=== PATIENT | male | born 1960 | race African-American/Black ===

== ENCOUNTER 2020-08-03 06:07 | Outpatient (REF) | payer MEDICARE, MEDICAID, SELFPAY ==
[2020-08-03 07:18] LABS: MANUAL DIFF FLAG NO
[2020-08-03 07:20] LABS: Basophils Percent Auto 0.7 % (0-2); Eosinophils Absolute Auto 0.2 X10*3/uL (0.0-0.4); Eosinophils Percent Auto 3.6 % (0-4); Hematocrit 43.5 % (42-52); Hemoglobin 14.8 g/dl (14.0-18.0); Imm Gran Abs Auto 0.02 X10*3/uL (0.00-0.03); Imm Gran Pct Auto 0.4 % (0.0-0.4); Lymphocytes Absolute Auto 1.6 X10*3/uL (1.2-4.9); Lymphocytes Percent Auto 28.8 % (20-40); Mean Corpuscular Hemoglobin 30.8 pg (27.0-33.0); Mean Corpuscular Volume 90.4 fL (80-98); Mean Platelet Volume 9.6 fL (9.4-12.4); Monocytes Absolute Auto 0.5 X10*3/uL (0.1-1.2); Monocytes Percent Auto 9.6 % (2-11); Neutrophils Absolute Auto 3.1 X10*3/uL (2.0-8.3); Neutrophils Percent Auto 56.9 % (45-73); Platelet Count 253 X10*3/uL (160-400); Red Blood Count 4.81 X10*6/uL (4.60-5.80); Red Cell Distribution Width 14.2 % (11.0-16.0); White Blood Count 5.5 X10*3/uL (4.8-10.8)
[2020-08-03 07:58] LABS: Alanine Aminotransferase 21 U/L (0-40); Albumin Level 4.1 g/dL (3.5-5.0); Alkaline Phosphatase 83 U/L (39-117); Anion Gap 11 (12-20); Aspartate Amino Transferase 20 U/L (5-37); Bilirubin Total 0.6 mg/dL (0.0-1.0); Blood Urea Nitrogen 15 mg/dL (9-16); Carbon Dioxide 30 mmol/L (22-29); Chloride 106 mmol/L (96-108); Cholesterol 190 mg/dL; Estimated Glomerular Filt Rate 41; Glucose Random 97 mg/dL (60-115); HDL Cholesterol 63 mg/dL; LDL Cholesterol Calculated 110 mg/dl; Magnesium 2.2 mg/dL (1.6-2.6); Phosphorus 3.7 mg/dL (2.7-4.5); Sodium 143 mmol/L (135-145); Total Protein 6.8 g/dL (6.5-8.0); Triglycerides 85 mg/dL
[2020-08-04 12:21] LABS: Calcium (PTHI) 9.1 mg/dL (8.6-10.3); PTHI 162 pg/mL (14-64)
== END 2020-08-03 06:08 | disposition home or self-care (01) ==
LOC: HO.LAB 06:07
PROVIDERS: Absent Provider Internal Medicine; PCP Internal Medicine; Visit Provider Internal Medicine
DX: I12.9 Hypertensive chronic kidney disease with stage 1 through stage 4 chronic kidney disease, or unspecified chronic kidney disease (principal); N18.30 Chronic kidney disease, stage 3 unspecified; E78.5 Hyperlipidemia, unspecified
CPT/HCPCS: 36415; 80053; 80061; 83735; 83970; 84100; 85025

== ENCOUNTER 2021-03-14 09:06 | Outpatient (REF) | payer MEDICARE, MEDICAID, SELFPAY ==
[2021-03-14 09:32] LABS: MANUAL DIFF FLAG NO
[2021-03-14 09:36] LABS: Basophils Percent Auto 0.6 % (0-2); Eosinophils Absolute Auto 0.1 X10*3/uL (0.0-0.4); Hemoglobin 15.1 g/dl (14.0-18.0); Imm Gran Abs Auto 0.01 X10*3/uL (0.00-0.03); Imm Gran Pct Auto 0.2 % (0.0-0.4); Lymphocytes Absolute Auto 1.2 X10*3/uL (1.2-4.9); Lymphocytes Percent Auto 25.1 % (20-40); Mean Corpuscular HGB Conc 34.3 g/dl (31.0-36.0); Mean Corpuscular Hemoglobin 30.7 pg (27.0-33.0); Mean Corpuscular Volume 89.4 fL (80.0-98.0); Mean Platelet Volume 8.9 fL (9.4-12.4); Monocytes Absolute Auto 0.4 X10*3/uL (0.1-1.2); Monocytes Percent Auto 8.4 % (2-11); Neutrophils Absolute Auto 3.1 x10*3/uL (2.0-8.3); Neutrophils Percent Auto 63.7 % (45-73); Platelet Count 269 X10*3/uL (160-400); Red Blood Count 4.92 X10*6/uL (4.60-5.80); Red Cell Distribution Width 14.1 % (11.0-16.0); White Blood Count 4.9 X10*3/uL (4.8-10.8)
[2021-03-14 10:02] LABS: Anion Gap 12 (12-20); Blood Urea Nitrogen 22 mg/dL (9-16); Calcium 9.7 mg/dL (8.4-10.2); Carbon Dioxide 24 mmol/L (22-29); Chloride 107 mmol/L (96-108); Estimated Glomerular Filt Rate 31; Magnesium 1.8 mg/dL (1.6-2.6); Sodium 139 mmol/L (135-145)
[2021-03-14 10:22] LABS: Vitamin D 25-OH Total 11.7 ng/mL (>30)
[2021-03-14 12:37] LABS: Microalbum/Creatinine Ratio Ur 48.2 ug/mg cr
[2021-03-16 12:10] LABS: Calcium (PTHI) 9.2 mg/dL (8.6-10.3); PTHI 179 pg/mL (14-64)
== END 2021-03-14 09:07 | disposition home or self-care (01) ==
LOC: HO.LAB 09:06
PROVIDERS: Visit Provider Internal Medicine
DX: E87.6 Hypokalemia (principal); I12.9 Hypertensive chronic kidney disease with stage 1 through stage 4 chronic kidney disease, or unspecified chronic kidney disease; N18.31 Chronic kidney disease, stage 3a
CPT/HCPCS: 36415; 80051; 82043; 82306; 82310; 82565; 83735; 83970; 84520; 85025

== ENCOUNTER 2021-09-01 13:28 | Emergency (ER) | payer MEDICARE, MEDICAID, SELFPAY ==
--- NOTE | ~2021-09-01 | CT_ITS ---
EXAMINATION: CT HEAD WITHOUT CONTRAST (STROKE PROTOCOL) CLINICAL INFORMATION: Stroke protocol. COMPARISON: CT head dated 09/28/2017 TECHNIQUE: Contiguous axial imaging was performed from the skull base to vertex without intravenous administration of contrast. This CT examination was performed using dose optimization techniques as appropriate, variously including the following: *Automated exposure control *Adjustment of mA and/or kV according to patient size (this includes techniques or standardized protocols for targeted exams where dose is matched to indication/reason for exam; i.e. extremities or head) *Use of iterative reconstruction technique DLP: 767 mGy-cm FINDINGS: Acute left thalamic hemorrhage measuring approximately 1.8 cm with surrounding vasogenic edema extending over 3.2 cm. There is resultant expansion of the left thalamus and partial effacement of the third ventricle. No herniation pattern. A previous right thalamic hemorrhage in 2018 has evolved into an area of encephalomalacia within the right thalamus. New but nonrecent left frontal subcortical infarct and moderate background chronic white matter small vessel ischemic changes. Old right medial cerebellar lacunar infarct. Cavernous carotid calcifications. No extra-axial collection. Mucous retention cysts within the right maxillary sinus. Paranasal sinuses and mastoid air cells are otherwise clear. CT/CT head for stroke IMPRESSION: * Acute left thalamic hemorrhage as described. * Old right thalamic hemorrhagic infarct, left frontal subcortical infarct, medial right cerebellar lacunar infarct and moderate background small vessel ischemic changes. This critical result was discussed with Dr Baltazar at 09/01/2021 1:45 PM and it was ascertained that the content and urgency of the report was understood at the time of direct communication.
--- NOTE | 2021-09-01 13:31 | ECG_ITS ---
Test Reason : stroke Blood Pressure : / mmHG Vent. Rate : 086 BPM Atrial Rate : 086 BPM P-R Int : 164 ms QRS Dur : 102 ms QT Int : 412 ms P-R-T Axes : 061 000 080 degrees QTc Int : 493 ms Normal sinus rhythm Moderate voltage criteria for LVH, may be normal variant ( Sokolow-Bowser , Esteban product ) Nonspecific T wave abnormality Prolonged QT Abnormal ECG When compared with ECG of 13-OCT-2018 18:28, Inverted T waves have replaced nonspecific T wave abnormality in Lateral leads QT has lengthened Referred By: Beatriz Navas Electronically Signed By:Corey Moy
--- NOTE | 2021-09-01 13:32 | ED_ITS ---
HPI - Neuro Symptoms/Deficit General Chief Complaint: Stroke Stated Complaint: UNK LKWT,GARB SPEECH,R WEAK,-THINNERS PER EMS Time Seen by Provider: 09/01/21 13:31 Source: patient and EMS Mode of arrival: EMS History of Present Illness HPI Narrative: 61-year-old male with known hypertension, non med compliant is brought in by EMS with garbled speech unknown last known well they Score patient at [facility] which is consistent with my evaluation. EMS also states that patient has full medications that are delivered to his home that have not been opened. Patient denies any dizziness, visual loss, headache. Related Data Allergies Allergy/AdvReac Type Severity Reaction Status Date / Time No Known Allergies Allergy Unverified 12/03/19 19:31 [No Known Allergies*] Review of Systems Review of Systems: Pertinent positives and negatives as stated in HPI 10 point review of systems otherwise negative. PMFSH Past Medical History Source: nursing notes reviewed Social History Social History Advance Directives: Yes Advance Directives Information Provided: Yes Advance Directives on File: No Physical Exam Vital Signs: Vital Signs: Last Vital Signs Temp 99.2 F 09/01/21 14:28 Pulse 70 09/01/21 14:51 Resp 16 09/01/21 14:51 BP 163/118 H 09/01/21 14:51 Pulse Ox 98 09/01/21 14:28 O2 Del Method 09/01/21 14:28 BMI result Body Mass Index 0.4 VITAL SIGNS: Reviewed. GENERAL: Well developed, well nourished, in no acute distress. HEAD: Normocephalic/atraumatic EYES: PERRLA, EOMI,, no nystagmus EARS: Ext canals without abnormality OROPHARYNX: no oral lesions noted, posterior pharynx clear and non-erythematous without noted tonsillar enlargement/erythema/exudates NECK: Supple, no adenopathy LUNGS: Normal breath sounds. CARDIOVASCULAR: Regular rate and rhythm without noted murmurs ABDOMEN: Soft, non-tender, non-distended with bowel sounds. MUSCULOSKELETAL: No tenderness, deformities, or effusions noted on gross inspection. EXTREMITIES: No cyanosis, clubbing or edema. SKIN: Inspection of the skin reveals no rashes NEUROLOGIC: Alert and oriented x 4. Strength and sensation to light touch were grossly intact x 4, facial asymmetry is present, mild aphasia, otherwise cranial nerves 2-12 are grossly intact. Course Course Course Narrative: 61-year-old Male With severe hypertension and suspect stroke. 1338: Called by radiology and patient has left thalamic bleed. 1349: Spoke with [facility] [place]. Patient to receive labetalol. 1405: Discussed with Dr Cao who recommends BP control to SBP-[address] patient on nicardipine drip. Patient is arranged for stepdown under the care of the hospitalist. 1429: Patient noted to have an elevated troponin, however he is not having chest pain, and his blood pressure has been well over 200 systolic and is currently improving. Will provide [facility] hospitalist with this information, however this is likely secondary to uncontrolled blood pressure. 1443: Discussed the case with the hospitalist who accepts transfer under Dr Chow. Awaiting a bed. MDM - Neuro Symptoms/Deficit Lab Data Result diagrams: 09/01/21 13:53 09/01/21 13:53 Labs: Lab Results 09/01/21 09/01/21 09/01/21 Range/Units 13:47 13:48 13:53 WBC 5.4 (4.8-10.8) X10*3/uL RBC 5.07 (4.60-5.80) X10*6/uL Hgb 15.6 (14.0-18.0) g/dl Hct 44.6 (42.0-52.0) % MCV 88.0 (80.0-98.0) fL MCH 30.8 (27.0-33.0) pg MCHC 35.0 (31.0-36.0) g/dl RDW 14.1 (11.0-16.0) % Plt Count 267 (160-400) X10*3/uL MPV 9.4 (9.4-12.4) fL Immature Gran % (Auto) 0.2 (0.0-0.4) % Neut % (Auto) 65.0 (45-73) % Lymph % (Auto) 25.0 (20-40) % [place] % (Auto) 8.1 (2-11) % Eos % (Auto) 1.1 (0-4) % Baso % (Auto) 0.6 (0-2) % Lymph # (Auto) 1.4 (1.2-4.9) X10*3/uL [place] # (Auto) 0.4 (0.1-1.2) X10*3/uL Eos # (Auto) 0.1 (0.0-0.4) X10*3/uL Baso # (Auto) 0.0 (0.0-0.2) X10*3/uL Abs Immat Gran (auto) 0.01 (0.00-0.03) X10*3/uL Absolute Neuts (auto) 3.5 (2.0-8.3) x10*3/uL Absolute Nucleated RBC 0.000 (0.0-0.012) X10*3/uL Nucleated RBC % (auto) 0.0 (0.0-0.2) /100WBC PT (9.9-13.0) SEC Whole Blood PT 13.0 (11.1-13.5) sec INR (0.9-1.1) Whole Blood INR 1.1 (0.9-1.1) APTT (24.1-38.0) SEC Sodium (135-145) mmol/L Potassium (3.3-5.1) mmol/L Chloride (96-108) mmol/L Carbon Dioxide (22-29) mmol/L Anion Gap (12-20) BUN (9-16) mg/dL Creatinine (0.5-1.4) mg/dL Estim Creat Clear Calc Estimated GFR POC Glucose 96 (60-115) mg/dL Random Glucose (60-115) mg/dL Calcium (8.4-10.2) mg/dL Total Creatine Kinase (38-174) U/L Troponin I High Sens (<3.5-35.0) ng/L COVID-19 (NANCI) (Negative) COVID-19 Clin Com 09/01/21 09/01/21 09/01/21 Range/Units 13:53 13:53 13:53 WBC (4.8-10.8) X10*3/uL RBC (4.60-5.80) X10*6/uL Hgb (14.0-18.0) g/dl Hct (42.0-52.0) % MCV (80.0-98.0) fL MCH (27.0-33.0) pg MCHC (31.0-36.0) g/dl RDW (11.0-16.0) % Plt Count (160-400) X10*3/uL MPV (9.4-12.4) fL Immature Gran % (Auto) (0.0-0.4) % Neut % (Auto) (45-73) % Lymph % (Auto) (20-40) % [place] % (Auto) (2-11) % Eos % (Auto) (0-4) % Baso % (Auto) (0-2) % Lymph # (Auto) (1.2-4.9) X10*3/uL [place] # (Auto) (0.1-1.2) X10*3/uL Eos # (Auto) (0.0-0.4) X10*3/uL Baso # (Auto) (0.0-0.2) X10*3/uL Abs Immat Gran (auto) (0.00-0.03) X10*3/uL Absolute Neuts (auto) (2.0-8.3) x10*3/uL Absolute Nucleated RBC (0.0-0.012) X10*3/uL Nucleated RBC % (auto) (0.0-0.2) /100WBC PT 12.5 (9.9-13.0) SEC Whole Blood PT (11.1-13.5) sec INR 1.1 (0.9-1.1) Whole Blood INR (0.9-1.1) APTT 34.0 (24.1-38.0) SEC Sodium 141 (135-145) mmol/L Potassium 3.9 (3.3-5.1) mmol/L Chloride 105 (96-108) mmol/L Carbon Dioxide 24 (22-29) mmol/L Anion Gap 16 (12-20) BUN 26 H (9-16) mg/dL Creatinine 1.96 H (0.5-1.4) mg/dL Estim Creat Clear Calc 54.9 Estimated GFR 35 POC Glucose (60-115) mg/dL Random Glucose 91 (60-115) mg/dL Calcium 9.4 (8.4-10.2) mg/dL Total Creatine Kinase 239 H (38-174) U/L Troponin I High Sens 322.6 H* (<3.5-35.0) ng/L COVID-19 (NANCI) (Negative) COVID-19 Clin Com 09/01/21 09/01/21 Range/Units 13:53 14:27 WBC (4.8-10.8) X10*3/uL RBC (4.60-5.80) X10*6/uL Hgb (14.0-18.0) g/dl Hct (42.0-52.0) % MCV (80.0-98.0) fL MCH (27.0-33.0) pg MCHC (31.0-36.0) g/dl RDW (11.0-16.0) % Plt Count (160-400) X10*3/uL MPV (9.4-12.4) fL Immature Gran % (Auto) (0.0-0.4) % Neut % (Auto) (45-73) % Lymph % (Auto) (20-40) % [place] % (Auto) (2-11) % Eos % (Auto) (0-4) % Baso % (Auto) (0-2) % Lymph # (Auto) (1.2-4.9) X10*3/uL [place] # (Auto) (0.1-1.2) X10*3/uL Eos # (Auto) (0.0-0.4) X10*3/uL Baso # (Auto) (0.0-0.2) X10*3/uL Abs Immat Gran (auto) (0.00-0.03) X10*3/uL Absolute Neuts (auto) (2.0-8.3) x10*3/uL Absolute Nucleated RBC (0.0-0.012) X10*3/uL Nucleated RBC % (auto) (0.0-0.2) /100WBC PT (9.9-13.0) SEC Whole Blood PT (11.1-13.5) sec INR (0.9-1.1) Whole Blood INR (0.9-1.1) APTT (24.1-38.0) SEC Sodium (135-145) mmol/L Potassium (3.3-5.1) mmol/L Chloride (96-108) mmol/L Carbon Dioxide (22-29) mmol/L Anion Gap (12-20) BUN (9-16) mg/dL Creatinine (0.5-1.4) mg/dL Estim Creat Clear Calc Estimated GFR POC Glucose 85 (60-115) mg/dL Random Glucose (60-115) mg/dL Calcium (8.4-10.2) mg/dL Total Creatine Kinase (38-174) U/L Troponin I High Sens (<3.5-35.0) ng/L COVID-19 (NANCI) Negative (Negative) COVID-19 Clin Com See Note ECG Data Attestation: I personally reviewed and interpreted this ECG as follows: Prior ECG tracings: available for review Interpretation: Normal sinus rhythm, HR -83, no STEMI, CO/QRS/QTC are within normal limits, this EKG was compared with prior EKG from 10/13/2018 and no acute changes. NIH Stroke Scale Internal: Initial- Upon Arrival Level of Consciousness: Alert Level of Consciousness Questions: Answers one question correctly Level of Consciousness Commands: Performs both tasks correctly Best Gaze: Normal Visual: No visual loss Facial Palsy: Minor paralyis Motor Arm (Right): No drift Motor Arm (Left): No drift Motor Leg (Right): No drift Motor Leg (Left): No drift Limb Ataxia: Absent Sensory: Normal Best Language: No aphasia Dysarthia: Mild to moderate dysarthria Extinction and Inattention: No abnormality Score: 3 Discharge Plan Discharge Clinical Impression: Thalamic hemorrhage with stroke, Hypertensive emergency Patient Disposition: Xfer Acute Care Hospital Transfer Details: Thalamic hemorrhagic stroke
[2021-09-01 13:33] VITALS: BP 250/140; PULSE 84
--- NOTE | 2021-09-01 13:46 | PC.NURSE ---
@ [phone] CALL PLACED TO [facility] PT TX LINE @ REQUEST OF DR FRANCES CHAU ANSWERS, TAKES PT INFO THEN ASKS TO SPEAK WITH DR FRANCES DANIELS TAKES OVER CALL RIGHT AWAY
[2021-09-01 13:58] LABS: Glucose, Whole Blood 96 mg/dL (60-115)
[2021-09-01 14:01] LABS: ~PT, ~INR - Anti Coag Clinic 1.1 (0.9-1.1)
[2021-09-01 14:03] LABS: MANUAL DIFF FLAG NO
[2021-09-01 14:05] LABS: Basophils Percent Auto 0.6 % (0-2); Eosinophils Absolute Auto 0.1 X10*3/uL (0.0-0.4); Eosinophils Percent Auto 1.1 % (0-4); Hematocrit 44.6 % (42.0-52.0); Hemoglobin 15.6 g/dl (14.0-18.0); Imm Gran Abs Auto 0.01 X10*3/uL (0.00-0.03); Imm Gran Pct Auto 0.2 % (0.0-0.4); Lymphocytes Absolute Auto 1.4 X10*3/uL (1.2-4.9); Mean Corpuscular Hemoglobin 30.8 pg (27.0-33.0); Mean Platelet Volume 9.4 fL (9.4-12.4); Monocytes Absolute Auto 0.4 X10*3/uL (0.1-1.2); Monocytes Percent Auto 8.1 % (2-11); Neutrophils Absolute Auto 3.5 x10*3/uL (2.0-8.3); Platelet Count 267 X10*3/uL (160-400); Red Blood Count 5.07 X10*6/uL (4.60-5.80); Red Cell Distribution Width 14.1 % (11.0-16.0); White Blood Count 5.4 X10*3/uL (4.8-10.8)
[2021-09-01 14:10] LABS: INTERNATIONAL NORM RATIO 1.1 (0.9-1.1); Prothrombin Time 12.5 SEC (9.9-13.0)
[2021-09-01 14:13] VITALS: BP 176/126; PULSE 92; RESP 18; TEMP 36.6; O2SAT 98
[2021-09-01 14:13] LABS: Stroke Lab Use COMPLETE
[2021-09-01 14:22] LABS: Anion Gap 16 (12-20); Blood Urea Nitrogen 26 mg/dL (9-16); Calcium 9.4 mg/dL (8.4-10.2); Carbon Dioxide 24 mmol/L (22-29); Chloride 105 mmol/L (96-108); Creatinine Clr Calc Pharmacy 54.9; Estimated Glomerular Filt Rate 35; Glucose Random 91 mg/dL (60-115); Potassium 3.9 mmol/L (3.3-5.1); Sodium 141 mmol/L (135-145)
--- NOTE | 2021-09-01 14:25 | PC.NURSE ---
@ [phone] CALL RECEIVED FROM DESI OF THE [facility] PT TX LINE ASKING TO SPEAK WITH DR FRANCES DANIELS TAKES OVER CALL THEN INFORMS THIS US THAT WE ARE NOW WAITING FOR A HOSPITALIST FROM [facility] TO CALL US BACK
[2021-09-01 14:28] VITALS: BP 174/128; PULSE 81; RESP 13; TEMP 37.3; O2SAT 98
[2021-09-01 14:28] LABS: COVID-19 Test Negative (Negative); Troponin-I High Sensitivity 322.6 ng/L (<3.5-35.0)
[2021-09-01 14:35] LABS: Glucose, Whole Blood 85 mg/dL (60-115)
[2021-09-01 14:51] VITALS: BP 163/118; PULSE 70; RESP 16
--- NOTE | 2021-09-01 15:01 | PC.NURSE ---
@ [phone] DR DANIELS GIVES ACCEPTING MD AT [facility] DR ELLIS AND THAT WE ARE WAITING FOR A CALL WITH ROOM ASSIGNMENT @ [facility] FOR THIS PT
--- NOTE | 2021-09-01 15:06 | PC.NURSE ---
@ 2570 CALL RCEIVED FROM MELLO OF THE [facility] PT TX LINE GIVING ROOM ASSIGNMENT DOUGLAS VALDEZ 5B, ROOM 19 RN TO RN SHOULD BE CALLED TO [phone]
--- NOTE | 2021-09-01 15:20 | PC.NURSE ---
attempted to call report x 2 no ans
--- NOTE | 2021-09-01 15:32 | PC.NURSE ---
3 call nurse is at lunch
[2021-09-01 15:49] VITALS: BP 176/122; PULSE 82; RESP 16; TEMP 37; O2SAT 98
== END 2021-09-01 16:27 | disposition short-term general hospital (02) ==
PROVIDERS: Emergency Provider Student in an Organized Health Care Education/Training Program; PCP Internal Medicine
DX: I61.8 Other nontraumatic intracerebral hemorrhage (principal); R29.703 NIHSS score 3; I16.1 Hypertensive emergency; I10 Essential (primary) hypertension; Z91.14 Patient's other noncompliance with medication regimen; Z20.822 Contact with and (suspected) exposure to COVID-19
CPT/HCPCS: 36415; 70450; 80048; 82550; 82947; 84484; 85025; 85610; 85730; 87635; 93005; 96374; 99285

== ENCOUNTER 2021-09-25 06:49 | Outpatient (REF) | payer MEDICARE, MEDICAID, SELFPAY ==
[2021-09-25 07:23] LABS: MANUAL DIFF FLAG NO
[2021-09-25 08:05] LABS: Basophils Percent Auto 0.7 % (0-2); Eosinophils Absolute Auto 0.1 X10*3/uL (0.0-0.4); Eosinophils Percent Auto 2.9 % (0-4); Hematocrit 38.4 % (42.0-52.0); Hemoglobin 13.1 g/dl (14.0-18.0); Imm Gran Abs Auto 0.02 X10*3/uL (0.00-0.03); Imm Gran Pct Auto 0.4 % (0.0-0.4); Lymphocytes Absolute Auto 1.3 X10*3/uL (1.2-4.9); Lymphocytes Percent Auto 29.4 % (20-40); Mean Corpuscular HGB Conc 34.1 g/dl (31.0-36.0); Mean Corpuscular Hemoglobin 30.8 pg (27.0-33.0); Mean Corpuscular Volume 90.4 fL (80.0-98.0); Mean Platelet Volume 9.5 fL (9.4-12.4); Monocytes Absolute Auto 0.4 X10*3/uL (0.1-1.2); Monocytes Percent Auto 9.7 % (2-11); Neutrophils Absolute Auto 2.6 x10*3/uL (2.0-8.3); Neutrophils Percent Auto 56.9 % (45-73); Platelet Count 279 X10*3/uL (160-400); Red Blood Count 4.25 X10*6/uL (4.60-5.80); Red Cell Distribution Width 14.4 % (11.0-16.0); White Blood Count 4.5 X10*3/uL (4.8-10.8)
[2021-09-25 08:18] LABS: Appearance Urine CLEAR; Color Urine YELLOW; Glucose Urine UA NEG (NEG); Leukocyte Esterase Urine NEG (NEG); Nitrite Urine NEG (NEG); Specific Gravity - Urine >= 1.030 (1.005-1.025); Urine Blood NEG (NEG); Urine Ketones NEG (NEG); Urine Protein NEG (NEG-TRACE)
[2021-09-25 08:40] LABS: Anion Gap 11 (12-20); Blood Urea Nitrogen 19 mg/dL (9-16); Calcium 8.9 mg/dL (8.4-10.2); Carbon Dioxide 25 mmol/L (22-29); Chloride 108 mmol/L (96-108); Estimated Glomerular Filt Rate 36; Potassium 3.9 mmol/L (3.3-5.1); Sodium 140 mmol/L (135-145)
[2021-09-25 08:48] LABS: Vitamin D 25-OH Total 21.8 ng/mL (>30)
[2021-09-26 12:11] LABS: Calcium (PTHI) 9.2 mg/dL (8.6-10.3); PTHI 147 pg/mL (16-77)
== END 2021-09-25 06:50 | disposition home or self-care (01) ==
LOC: HO.LAB 06:49
PROVIDERS: PCP Internal Medicine; Visit Provider Internal Medicine
DX: I12.9 Hypertensive chronic kidney disease with stage 1 through stage 4 chronic kidney disease, or unspecified chronic kidney disease (principal); N18.32 Chronic kidney disease, stage 3b; E26.09 Other primary hyperaldosteronism
CPT/HCPCS: 36415; 80051; 81003; 82306; 82310; 82565; 83970; 84520; 85025

== ENCOUNTER 2022-01-24 11:26 | Outpatient (REF) | payer MEDICARE, MEDICAID, SELFPAY ==
[2022-01-24 11:40] LABS: MANUAL DIFF FLAG NO
[2022-01-24 12:22] LABS: Basophils Percent Auto 0.6 % (0-2); Eosinophils Absolute Auto 0.1 X10*3/uL (0.0-0.4); Eosinophils Percent Auto 2.3 % (0-4); Hematocrit 39.7 % (42.0-52.0); Hemoglobin 13.4 g/dl (14.0-18.0); Imm Gran Abs Auto 0.01 X10*3/uL (0.00-0.03); Imm Gran Pct Auto 0.2 % (0.0-0.4); Lymphocytes Absolute Auto 1.3 X10*3/uL (1.2-4.9); Lymphocytes Percent Auto 26.6 % (20-40); Mean Corpuscular HGB Conc 33.8 g/dl (31.0-36.0); Mean Corpuscular Hemoglobin 29.9 pg (27.0-33.0); Mean Corpuscular Volume 88.6 fL (80.0-98.0); Mean Platelet Volume 9.5 fL (9.4-12.4); Monocytes Absolute Auto 0.4 X10*3/uL (0.1-1.2); Monocytes Percent Auto 8.7 % (2-11); Neutrophils Absolute Auto 2.9 x10*3/uL (2.0-8.3); Neutrophils Percent Auto 61.6 % (45-73); Platelet Count 268 X10*3/uL (160-400); Red Blood Count 4.48 X10*6/uL (4.60-5.80); Red Cell Distribution Width 16.3 % (11.0-16.0); White Blood Count 4.7 X10*3/uL (4.8-10.8)
[2022-01-24 13:06] LABS: Microalbum/Creatinine Ratio Ur 31.7 ug/mg cr
[2022-01-24 13:15] LABS: Anion Gap 12 (12-20); Blood Urea Nitrogen 16 mg/dL (9-16); Calcium 9.4 mg/dL (8.4-10.2); Carbon Dioxide 27 mmol/L (22-29); Chloride 107 mmol/L (96-108); Estimated Glomerular Filt Rate 37; Potassium 4.4 mmol/L (3.3-5.1); Sodium 142 mmol/L (135-145); Vitamin D 25-OH Total 23.9 ng/mL (>30)
[2022-01-25 11:12] LABS: Calcium (PTHI) 9.3 mg/dL (8.6-10.3); PTHI 139 pg/mL (16-77)
== END 2022-01-24 11:27 | disposition home or self-care (01) ==
LOC: HO.LAB 11:26
PROVIDERS: Visit Provider Internal Medicine
DX: I12.9 Hypertensive chronic kidney disease with stage 1 through stage 4 chronic kidney disease, or unspecified chronic kidney disease (principal); N18.32 Chronic kidney disease, stage 3b; E26.09 Other primary hyperaldosteronism
CPT/HCPCS: 36415; 80051; 82043; 82306; 82310; 82565; 83970; 84520; 85025

== ENCOUNTER 2022-03-20 07:08 | Outpatient (REF) | payer MEDICARE, MEDICAID, SELFPAY ==
[2022-03-20 07:26] LABS: MANUAL DIFF FLAG NO
[2022-03-20 07:52] LABS: Basophils Percent Auto 0.6 % (0-2); Eosinophils Absolute Auto 0.1 X10*3/uL (0.0-0.4); Hemoglobin 13.7 g/dl (14.0-18.0); Imm Gran Abs Auto 0.01 X10*3/uL (0.00-0.03); Imm Gran Pct Auto 0.2 % (0.0-0.4); Lymphocytes Absolute Auto 1.5 X10*3/uL (1.2-4.9); Lymphocytes Percent Auto 32.5 % (20-40); Mean Corpuscular HGB Conc 33.4 g/dl (31.0-36.0); Mean Corpuscular Hemoglobin 29.9 pg (27.0-33.0); Mean Corpuscular Volume 89.5 fL (80.0-98.0); Mean Platelet Volume 9.8 fL (9.4-12.4); Monocytes Absolute Auto 0.5 X10*3/uL (0.1-1.2); Monocytes Percent Auto 10.1 % (2-11); Neutrophils Absolute Auto 2.5 x10*3/uL (2.0-8.3); Neutrophils Percent Auto 53.6 % (45-73); Platelet Count 292 X10*3/uL (160-400); Red Blood Count 4.58 X10*6/uL (4.60-5.80); Red Cell Distribution Width 17.4 % (11.0-16.0); White Blood Count 4.7 X10*3/uL (4.8-10.8)
[2022-03-20 08:19] LABS: Anion Gap 11 (12-20); Blood Urea Nitrogen 19 mg/dL (9-16); Calcium 9.5 mg/dL (8.4-10.2); Carbon Dioxide 26 mmol/L (22-29); Chloride 107 mmol/L (96-108); Estimated Glomerular Filt Rate 34; Potassium 4.3 mmol/L (3.3-5.1); Sodium 140 mmol/L (135-145)
[2022-03-20 08:38] LABS: Vitamin D 25-OH Total 24.8 ng/mL (>30)
[2022-03-20 10:07] LABS: Microalbum/Creatinine Ratio Ur 17.6 ug/mg cr
[2022-03-21 16:14] LABS: Calcium (PTHI) 9.4 mg/dL (8.6-10.3); PTHI 209 pg/mL (16-77)
== END 2022-03-20 07:09 | disposition home or self-care (01) ==
LOC: HO.LAB 07:08
PROVIDERS: PCP Internal Medicine; Visit Provider Internal Medicine
DX: I12.9 Hypertensive chronic kidney disease with stage 1 through stage 4 chronic kidney disease, or unspecified chronic kidney disease (principal); N18.32 Chronic kidney disease, stage 3b; E87.6 Hypokalemia
CPT/HCPCS: 36415; 80051; 82043; 82306; 82310; 82565; 83970; 84520; 85025

== ENCOUNTER 2022-07-30 08:22 | Outpatient (REF) | payer MEDICARE, MEDICAID, SELFPAY ==
[2022-07-30 09:27] LABS: Basophils Percent Auto 0.9 % (0-2); Eosinophils Absolute Auto 0.1 X10*3/uL (0.0-0.4); Eosinophils Percent Auto 2.5 % (0-4); Hematocrit 42.1 % (42.0-52.0); Hemoglobin 13.4 g/dl (14.0-18.0); Imm Gran Abs Auto 0.03 X10*3/uL (0.00-0.03); Imm Gran Pct Auto 0.7 % (0.0-0.4); Lymphocytes Absolute Auto 1.3 X10*3/uL (1.2-4.9); Lymphocytes Percent Auto 29.6 % (20-40); MANUAL DIFF FLAG SCAN; Mean Corpuscular HGB Conc 31.8 g/dl (31.0-36.0); Mean Corpuscular Volume 94.2 fL (80.0-98.0); Mean Platelet Volume 11.6 fL (9.4-12.4); Monocytes Absolute Auto 0.4 X10*3/uL (0.1-1.2); Monocytes Percent Auto 9.5 % (2-11); Neutrophils Absolute Auto 2.5 x10*3/uL (2.0-8.3); Neutrophils Percent Auto 56.8 % (45-73); PLT CLUMP 1; Red Blood Count 4.47 X10*6/uL (4.60-5.80); Red Cell Distribution Width 18.1 % (11.0-16.0); SCAN SMEAR FLAG 1
[2022-07-30 10:03] LABS: Alanine Aminotransferase 18 U/L (0-40); Albumin Level 4.1 g/dL (3.5-5.0); Alkaline Phosphatase 67 U/L (39-117); Anion Gap 14 (12-20); Aspartate Amino Transferase 19 U/L (5-37); Bilirubin Total 0.6 mg/dL (0.0-1.0); Blood Urea Nitrogen 23 mg/dL (9-16); Carbon Dioxide 21 mmol/L (22-29); Chloride 110 mmol/L (96-108); Cholesterol 123 mg/dL; Estimated Glomerular Filt Rate 38; Glucose Random 94 mg/dL (60-115); HDL Cholesterol 48 mg/dL; LDL Cholesterol Calculated 66 mg/dl; Potassium 4.4 mmol/L (3.3-5.1); Sodium 141 mmol/L (135-145); Total Protein 6.6 g/dL (6.5-8.0); Triglycerides 48 mg/dL
[2022-07-30 10:18] LABS: HIV AB/AG Nonreactive (Nonreactive); HIV Num 1 0.07 S/CO (0.00-0.99); ~HepC Num1 0.14 S/CO (0.00-0.79); ~Hepatitis C Antibody Nonreactive (Nonreactive)
[2022-07-30 10:22] LABS: TSH reflex Free T4 0.71 uIU/mL (0.32-4.0)
[2022-07-30 10:40] LABS: White Blood Count 4.4 X10*3/uL (4.8-10.8)
[2022-07-30 10:41] LABS: Platelet Count 160 X10*3/uL (160-400); SLIDE REVIEW VERIFIED
== END 2022-07-30 08:23 | disposition home or self-care (01) ==
LOC: HO.LAB 08:22
PROVIDERS: PCP Internal Medicine; Visit Provider Internal Medicine
DX: Z00.00 Encounter for general adult medical examination without abnormal findings (principal); Z11.4 Encounter for screening for human immunodeficiency virus [HIV]; Z11.59 Encounter for screening for other viral diseases; I12.9 Hypertensive chronic kidney disease with stage 1 through stage 4 chronic kidney disease, or unspecified chronic kidney disease; N18.30 Chronic kidney disease, stage 3 unspecified; E26.9 Hyperaldosteronism, unspecified; R94.31 Abnormal electrocardiogram [ECG] [EKG]
CPT/HCPCS: 36415; 80053; 80061; 84443; 85025; 86803; 87389

== ENCOUNTER 2022-09-07 06:53 | Outpatient (REF) | payer MEDICARE, MEDICAID, SELFPAY ==
[2022-09-07 07:05] LABS: MANUAL DIFF FLAG NO
[2022-09-07 07:28] LABS: Basophils Percent Auto 0.6 % (0-2); Eosinophils Absolute Auto 0.1 X10*3/uL (0.0-0.4); Hemoglobin 13.5 g/dl (14.0-18.0); Imm Gran Abs Auto 0.01 X10*3/uL (0.00-0.03); Imm Gran Pct Auto 0.2 % (0.0-0.4); Lymphocytes Absolute Auto 1.5 X10*3/uL (1.2-4.9); Lymphocytes Percent Auto 30.6 % (20-40); Mean Corpuscular HGB Conc 33.8 g/dl (31.0-36.0); Mean Corpuscular Hemoglobin 29.9 pg (27.0-33.0); Mean Corpuscular Volume 88.7 fL (80.0-98.0); Mean Platelet Volume 9.2 fL (9.4-12.4); Monocytes Absolute Auto 0.4 X10*3/uL (0.1-1.2); Monocytes Percent Auto 7.5 % (2-11); Neutrophils Absolute Auto 2.9 x10*3/uL (2.0-8.3); Neutrophils Percent Auto 59.1 % (45-73); Platelet Count 250 X10*3/uL (160-400); Red Blood Count 4.51 X10*6/uL (4.60-5.80); Red Cell Distribution Width 17.7 % (11.0-16.0); White Blood Count 4.9 X10*3/uL (4.8-10.8)
[2022-09-07 08:04] LABS: Anion Gap 11 (12-20); Blood Urea Nitrogen 25 mg/dL (9-16); Calcium 9.6 mg/dL (8.4-10.2); Carbon Dioxide 27 mmol/L (22-29); Chloride 107 mmol/L (96-108); Estimated Glomerular Filt Rate 33; Potassium 4.2 mmol/L (3.3-5.1); Sodium 141 mmol/L (135-145)
[2022-09-07 08:22] LABS: Vitamin D 25-OH Total 29.8 ng/mL (>30)
[2022-09-07 09:07] LABS: Microalbum/Creatinine Ratio Ur 3.1 ug/mg cr
[2022-09-10 14:32] LABS: Calcium (PTHI) 9.4 mg/dL (8.6-10.3); PTHI 160 pg/mL (16-77)
== END 2022-09-07 06:54 | disposition home or self-care (01) ==
LOC: HO.LAB 06:53
PROVIDERS: PCP Internal Medicine; Visit Provider Internal Medicine
DX: I12.9 Hypertensive chronic kidney disease with stage 1 through stage 4 chronic kidney disease, or unspecified chronic kidney disease (principal); N18.32 Chronic kidney disease, stage 3b; E26.09 Other primary hyperaldosteronism; E87.6 Hypokalemia
CPT/HCPCS: 36415; 80051; 82043; 82306; 82310; 82565; 83970; 84520; 85025

== ENCOUNTER 2023-03-04 12:03 | Outpatient (REF) | payer MEDICARE, MEDICAID, SELFPAY ==
[2023-03-04 12:51] LABS: MANUAL DIFF FLAG NO
[2023-03-04 14:00] LABS: Microalbum/Creatinine Ratio Ur 2.3 ug/mg cr (<30)
[2023-03-04 14:06] LABS: PTH Intact Intraoperative 130.3 pg/mL (8.7-77.1)
[2023-03-04 14:17] LABS: Basophils Percent Auto 0.6 % (0-2); Eosinophils Absolute Auto 0.1 X10*3/uL (0.0-0.4); Eosinophils Percent Auto 1.5 % (0-4); Hematocrit 37.5 % (42.0-52.0); Hemoglobin 12.4 g/dl (14.0-18.0); Imm Gran Abs Auto 0.02 X10*3/uL (0.00-0.03); Imm Gran Pct Auto 0.4 % (0.0-0.4); Lymphocytes Absolute Auto 1.4 X10*3/uL (1.2-4.9); Lymphocytes Percent Auto 26.6 % (20-40); Mean Corpuscular HGB Conc 33.1 g/dl (31.0-36.0); Mean Corpuscular Hemoglobin 30.2 pg (27.0-33.0); Mean Corpuscular Volume 91.2 fL (80.0-98.0); Mean Platelet Volume 10.4 fL (9.4-12.4); Monocytes Absolute Auto 0.6 X10*3/uL (0.1-1.2); Monocytes Percent Auto 10.9 % (2-11); Neutrophils Absolute Auto 3.1 x10*3/uL (2.0-8.3); Platelet Count 242 X10*3/uL (160-400); Red Blood Count 4.11 X10*6/uL (4.60-5.80); White Blood Count 5.2 X10*3/uL (4.8-10.8)
[2023-03-04 14:19] LABS: Anion Gap 13 (12-20); Blood Urea Nitrogen 30 mg/dL (9-16); Calcium 9.1 mg/dL (8.4-10.2); Carbon Dioxide 23 mmol/L (22-29); Chloride 108 mmol/L (96-108); Estimated Glomerular Filt Rate 32; Potassium 4.4 mmol/L (3.3-5.1); Sodium 140 mmol/L (135-145)
[2023-03-04 14:25] LABS: Vitamin D 25-OH Total 32.4 ng/mL (>30)
== END 2023-03-04 12:04 | disposition home or self-care (01) ==
LOC: HO.LAB 12:03
PROVIDERS: PCP Internal Medicine; Visit Provider Internal Medicine
DX: I12.9 Hypertensive chronic kidney disease with stage 1 through stage 4 chronic kidney disease, or unspecified chronic kidney disease (principal); N18.32 Chronic kidney disease, stage 3b; E26.09 Other primary hyperaldosteronism
CPT/HCPCS: 36415; 80051; 82043; 82306; 82310; 82565; 82570; 83970; 84520; 85025

== ENCOUNTER 2023-08-01 08:52 | Outpatient (REF) | payer MEDICARE, MEDICAID, SELFPAY ==
[2023-08-01 10:00] LABS: Anion Gap 13 (12-20); Blood Urea Nitrogen 27 mg/dL (9-16); Calcium 9.3 mg/dL (8.4-10.2); Carbon Dioxide 24 mmol/L (22-29); Chloride 107 mmol/L (96-108); Cholesterol 107 mg/dL (<200); Estimated Glomerular Filt Rate 25; Glucose Random 97 mg/dL (60-115); HDL Cholesterol 42 mg/dL (>40); LDL Cholesterol Calculated 52 mg/dL (<100); Potassium 4.5 mmol/L (3.3-5.1); Sodium 139 mmol/L (135-145); Triglycerides 65 mg/dL (<150)
== END 2023-08-01 08:53 | disposition home or self-care (01) ==
LOC: HO.LAB 08:52
PROVIDERS: PCP Internal Medicine; Visit Provider Internal Medicine
DX: I10 Essential (primary) hypertension (principal); E78.5 Hyperlipidemia, unspecified
CPT/HCPCS: 36415; 80048; 80061

== ENCOUNTER 2023-09-03 05:58 | Outpatient (REF) | payer MEDICARE, MEDICAID, SELFPAY ==
[2023-09-03 06:27] LABS: MANUAL DIFF FLAG NO
[2023-09-03 08:15] LABS: Basophils Percent Auto 0.6 % (0-2); Eosinophils Absolute Auto 0.1 X10*3/uL (0.0-0.4); Eosinophils Percent Auto 1.6 % (0-4); Hematocrit 39.4 % (42.0-52.0); Hemoglobin 13.3 g/dl (14.0-18.0); Imm Gran Abs Auto 0.01 X10*3/uL (0.00-0.03); Imm Gran Pct Auto 0.2 % (0.0-0.4); Lymphocytes Absolute Auto 1.4 X10*3/uL (1.2-4.9); Lymphocytes Percent Auto 28.2 % (20-40); Mean Corpuscular HGB Conc 33.8 g/dl (31.0-36.0); Mean Corpuscular Hemoglobin 30.5 pg (27.0-33.0); Mean Corpuscular Volume 90.4 fL (80.0-98.0); Mean Platelet Volume 10.1 fL (9.4-12.4); Monocytes Absolute Auto 0.4 X10*3/uL (0.1-1.2); Monocytes Percent Auto 8.4 % (2-11); Neutrophils Absolute Auto 3.1 x10*3/uL (2.0-8.3); Platelet Count 260 X10*3/uL (160-400); Red Blood Count 4.36 X10*6/uL (4.60-5.80); Red Cell Distribution Width 17.6 % (11.0-16.0)
[2023-09-03 11:28] LABS: Microalbum/Creatinine Ratio Ur 2.7 ug/mg cr (<30)
[2023-09-03 11:34] LABS: Anion Gap 13 (12-20); Blood Urea Nitrogen 30 mg/dL (9-16); Calcium 9.1 mg/dL (8.4-10.2); Carbon Dioxide 21 mmol/L (22-29); Chloride 111 mmol/L (96-108); Estimated Glomerular Filt Rate 31; Potassium 4.6 mmol/L (3.3-5.1); Sodium 140 mmol/L (135-145)
[2023-09-03 11:47] LABS: Parathyroid Hormone Intact 126.3 pg/mL (8.7-77.1)
[2023-09-03 11:51] LABS: Vitamin D 25-OH Total 36.5 ng/mL (>30)
== END 2023-09-03 05:59 | disposition home or self-care (01) ==
LOC: HO.LAB 05:58
PROVIDERS: Visit Provider Internal Medicine
DX: N18.32 Chronic kidney disease, stage 3b (principal); E87.6 Hypokalemia; E78.2 Mixed hyperlipidemia; E26.09 Other primary hyperaldosteronism
CPT/HCPCS: 36415; 80051; 82043; 82306; 82310; 82565; 82570; 83970; 84520; 85025

== ENCOUNTER 2024-03-12 09:18 | Outpatient (REF) | payer MEDICARE, MEDICAID, SELFPAY ==
[2024-03-12 09:39] LABS: MANUAL DIFF FLAG NO
[2024-03-12 09:55] LABS: Basophils Percent Auto 0.7 % (0-2); Eosinophils Absolute Auto 0.1 X10*3/uL (0.0-0.4); Eosinophils Percent Auto 2.2 % (0-4); Hematocrit 41.6 % (42.0-52.0); Hemoglobin 14.6 g/dl (14.0-18.0); Imm Gran Abs Auto 0.01 X10*3/uL (0.00-0.03); Imm Gran Pct Auto 0.2 % (0.0-0.4); Lymphocytes Absolute Auto 1.4 X10*3/uL (1.2-4.9); Lymphocytes Percent Auto 32.9 % (20-40); Mean Corpuscular HGB Conc 35.1 g/dl (31.0-36.0); Mean Corpuscular Hemoglobin 31.9 pg (27.0-33.0); Mean Platelet Volume 8.9 fL (9.4-12.4); Monocytes Absolute Auto 0.4 X10*3/uL (0.1-1.2); Monocytes Percent Auto 10.2 % (2-11); Neutrophils Absolute Auto 2.2 x10*3/uL (2.0-8.3); Neutrophils Percent Auto 53.8 % (45-73); Platelet Count 229 X10*3/uL (160-400); Red Blood Count 4.57 X10*6/uL (4.60-5.80); Red Cell Distribution Width 14.3 % (11.0-16.0); White Blood Count 4.1 X10*3/uL (4.8-10.8)
[2024-03-12 10:27] LABS: Anion Gap 11 (12-20); Blood Urea Nitrogen 15 mg/dL (9-16); Calcium 8.7 mg/dL (8.4-10.2); Carbon Dioxide 27 mmol/L (22-29); Chloride 107 mmol/L (96-108); Estimated Glomerular Filt Rate 40; Iron 107 mcg/dL (45-160); Percent Iron Saturation 40 % (15-50); Sodium 141 mmol/L (135-145); Total Iron Binding Capacity 267 mcg/dL (228-428); Unsaturated Iron Binding 160 ug/dL
[2024-03-12 10:38] LABS: Creatinine Urine 67.14 mg/dL; Total Protein Urine Random < 7 mg/dL (<12)
[2024-03-12 10:50] LABS: Parathyroid Hormone Intact 239.7 pg/mL (8.7-77.1)
[2024-03-12 11:04] LABS: Vitamin D 25-OH Total 31.7 ng/mL (>30)
== END 2024-03-12 09:19 | disposition home or self-care (01) ==
LOC: HO.LAB 09:18
PROVIDERS: PCP Internal Medicine; Visit Provider Internal Medicine Nephrology
DX: I12.9 Hypertensive chronic kidney disease with stage 1 through stage 4 chronic kidney disease, or unspecified chronic kidney disease (principal); N18.32 Chronic kidney disease, stage 3b
CPT/HCPCS: 36415; 80051; 82306; 82310; 82565; 82570; 83540; 83970; 84156; 84520; 85025

== ENCOUNTER 2024-09-09 07:24 | Outpatient (REF) | payer MEDICARE, MEDICAID, SELFPAY ==
[2024-09-09 07:38] LABS: MANUAL DIFF FLAG NO
[2024-09-09 08:12] LABS: Basophils Percent Auto 0.5 % (0-2); Eosinophils Absolute Auto 0.1 X10*3/uL (0.0-0.4); Eosinophils Percent Auto 3.3 % (0-4); Hematocrit 42.5 % (42.0-52.0); Hemoglobin 14.5 g/dl (14.0-18.0); Imm Gran Abs Auto 0.01 X10*3/uL (0.00-0.03); Imm Gran Pct Auto 0.2 % (0.0-0.4); Lymphocytes Absolute Auto 1.5 X10*3/uL (1.2-4.9); Lymphocytes Percent Auto 36.3 % (20-40); Mean Corpuscular HGB Conc 34.1 g/dl (31.0-36.0); Mean Corpuscular Hemoglobin 31.5 pg (27.0-33.0); Mean Corpuscular Volume 92.4 fL (80.0-98.0); Mean Platelet Volume 9.2 fL (9.4-12.4); Monocytes Absolute Auto 0.5 X10*3/uL (0.1-1.2); Monocytes Percent Auto 11.6 % (2-11); Neutrophils Percent Auto 48.1 % (45-73); Platelet Count 232 X10*3/uL (160-400); Red Cell Distribution Width 14.1 % (11.0-16.0); White Blood Count 4.2 X10*3/uL (4.8-10.8)
[2024-09-09 08:28] LABS: Appearance Urine Clear; Color Urine Yellow; Glucose Urine UA Negative (Negative); Leukocyte Esterase Urine Trace (Negative); Nitrite Urine Negative (Negative); PH 6.5 (5.0-9.0); Specific Gravity - Urine >= 1.030 (1.005-1.025); UMIC TRIGGER UA YES; Urine Blood Negative (Negative); Urine Ketones Trace mg/dL (Negative); Urine Protein 30 (1+) mg/dL (Neg-Trace)
[2024-09-09 08:34] LABS: Bacteria Urine None Seen (None Seen); Hyaline Casts Urine 0-2 /LPF (0-2); RBC Urine 0-2 /HPF (0-2); Squamous Epithelial Cell Urine 0-2 /HPF (0-2); WBC Urine 0-5 /HPF (0-5)
[2024-09-09 08:55] LABS: Anion Gap 12 (12-20); Blood Urea Nitrogen 20 mg/dL (9-16); Calcium 9.5 mg/dL (8.4-10.2); Carbon Dioxide 25 mmol/L (22-29); Chloride 107 mmol/L (96-108); Estimated Glomerular Filt Rate 35; Iron 148 mcg/dL (45-160); Percent Iron Saturation 53 % (15-50); Potassium 4.4 mmol/L (3.3-5.1); Sodium 140 mmol/L (135-145); Total Iron Binding Capacity 278 mcg/dL (228-428); Unsaturated Iron Binding 130 ug/dL
[2024-09-09 08:57] LABS: Protein/Creatinine Ratio, Ur 0.04 (<0.2); Total Protein Urine Random 18 mg/dL (<12)
[2024-09-09 09:01] LABS: Vitamin D 25-OH Total 34.7 ng/mL (>30)
== END 2024-09-09 07:25 | disposition home or self-care (01) ==
LOC: HO.LAB 07:24
PROVIDERS: Internal Medicine Nephrology; Visit Provider Internal Medicine Nephrology
DX: N18.32 Chronic kidney disease, stage 3b (principal); E55.9 Vitamin D deficiency, unspecified; D50.9 Iron deficiency anemia, unspecified
CPT/HCPCS: 36415; 80051; 81001; 82306; 82310; 82565; 82570; 83540; 84156; 84520; 85025

== ENCOUNTER 2024-10-05 07:08 | Outpatient (REF) | payer MEDICARE, MEDICAID, SELFPAY ==
--- OUTSIDE RECORDS SUMMARY | 2024-10-05 07:11 | XMS_ITS | Encounter Summary ---
Author Organization [facility] Address [address] [place] [address] Phone Care Team Providers Care Brick Wheeler Name Role Phone Mary Isaacs MD Primary Care Provider + [phone] Encounter Details Date Type Department Care Team (Late st Contact Info) Description 09/08/2021 Office Communication [facility] [address] [place] [address] Ty Fisher MD [address] [place] [address] [place] [address] Social History Tobacco Use Types Packs/Day Years Used Date Smoking Tobacco: Former Cigarettes Q uit: 03/25/1998 Comments:Smoking History Inf o:Every day Alcohol Use Standard Drinks/Week Comments Yes 0 (1 standard drink = 0.6 oz pure alcohol) Alcoholic Drinks/day: Occasional social drink Sex and Gender Information Value Date Recorded Sex Assigned at Not on file Legal Sex Male 4:31 PM EST Gender Identity Not on file Sexual Orientation Not on file documented as of this encounter Plan of Treatment Upcoming Encounters Date Type Department Care Team (Late Contact Info) Description 10/08/2024 10:30 AM EDT Office Visit [facility] [address] [place] [phone] Manan Carpenter MD [address] [place] [address] [place] [address] documented as of this encounter Visit Diagnoses Not on filedocumented in this encounter Care Teams Brick Wheeler Relationship Specialty Start Date End Date Mary Isaacs MD [address] [place] [address] [address] [place] [address] PCP - General 01/20/19 documented as of this encounter
--- OUTSIDE RECORDS SUMMARY | 2024-10-05 07:11 | XMS_ITS | Encounter Summary ---
Author Organization [facility] Address [address] [place] [address] Phone Care Team Providers Care Applied Research Director Name Role Phone Mary Isaacs MD Primary Care Provider + [phone] Mary Isaacs MD Unavailable [phone] Mary Isaacs MD Primary Care Provider [phone] Mary Isaacs MD Unavailable [phone] Jeimy White [facility] Unavailable Encounter Details Date Type Department Care Team (Late st Contact Info) Description 05/20/2019 Procedure Pass [address] [place] [address] Social History Tobacco Use Types Packs/Day Years Used Date Smoking Tobacco: Never Assessed Child or Family Care Answer Date Record ed Do you have problems with on e of the following making it difficult for you to work, study, or receive health care? No 11/11/2018 Education Answer Date Recorded Are you interested in help w ith more adult education (for example, completing high school, GED, job training, learning the Sinhala language, technical skills, or developing parenting skills)? I choose not to answer 11/11/2018 Are you concerned about learning? Not on file 11/11/2018 Not on file 11/11/2018 Not on file 11/11/2018 Food Answer Date Recorded Within the past 6 months we worried whether our food would run out before we got money to buy more. I choose not to answer 11/11/2018 Within the past 6 months the food we bought just didn't last and we didn't have enough money to get more. I choose not to answer 11/11/2018 Paying for Meds Answer Date Recorded Do you have trouble paying for medicines? No 11/11/2018 Paying Utility Bills Answer Date Record ed Do you have trouble paying your heating or elect ricity bill? No 11/11/2018 Transportation Answer Date Recorded Has the lack of transportati on kept you from medical appointments or from getting medications? Yes 11/11/2018 Sex and Gender Information Value Date Recorded Sex Assigned at Not on file Legal Sex Male 9:46 PM EDT Gender Identity Not on file Sexual Orientation Not on file documented as of this encounter Last Filed Vital Signs Vital Sign Reading Time Taken Comments Blood Pressure - - Pulse - - Temperature - - Respiratory Rate - - Oxygen Saturation - - Inhaled Oxygen Concentration - - Weight 97.1 kg (214 lb) 05/20/2019 7:06 PM EST Height 175.3 cm (5' 9 ) 05/20/2019 7:06 PM EST Body Mass Index 31.6 05/20/2019 7:06 PM EST documented in this encounter Plan of Treatment Upcoming Encounters Date Type Department Care Team (Late st Contact Info) Description 02/04/2025 3:20 PM EST Office Visit [facility] [address] [address] Mary Isaacs MD 14 [facility] [address] [place] [phone] [email or web address] documented as of this encounter Visit Diagnoses Not on filedocumented in this encounter Care Teams Applied Research Director Relationship Specialty Start Date End Date Mary Isaacs MD 14 [facility] [address] [place] [address] PCP - General 03/21/17 10/11/21 Mary Isaacs MD 14 [facility] [address] [place] [address] PCP - General Internal Medicine 10/12/21 Mary Isaacs MD 14 [facility] [address] [place] [phone] [email or web address] Insurance Assigned Provider 02/16/18 08/21/20 Mary Isaacs MD 14 [facility] [address] [place] [address] [email or web address] Insurance Assigned Provider 06/22/23 Jeimy White, [facility] [address] [place] [address] [email or web address] Work 08/07/23 08/14/23 documented as of this encounter Additional Source Comments The information contained in this document represents components of the legal health record. It is not the complete legal health record.[facility]
[2024-10-05 07:21] LABS: MANUAL DIFF FLAG NO
[2024-10-05 07:34] LABS: Hematocrit 41.0 % (42.0-52.0); Hemoglobin 14.3 g/dl (14.0-18.0); Imm Gran Abs Auto 0.00 X10*3/uL (0.00-0.03); Imm Gran Pct Auto 0.0 % (0.0-0.4); Lymphocytes Absolute Auto 1.8 X10*3/uL (1.2-4.9); Mean Corpuscular HGB Conc 34.9 g/dl (31.0-36.0); Mean Corpuscular Hemoglobin 32.1 pg (27.0-33.0); Mean Corpuscular Volume 91.9 fL (80.0-98.0); NRBC Abs Auto 0.000 X10*3/uL (0.0-0.012); NRBC Pct Auto 0.0 /100WBC (0.0-0.2); Platelet Count 224 X10*3/uL (160-400); Red Blood Count 4.46 X10*6/uL (4.60-5.80); White Blood Count 4.7 X10*3/uL (4.8-10.8)
[2024-10-05 07:57] LABS: Appearance Urine Clear; Glucose Urine UA Negative (Negative); PH 6.5 (5.0-9.0); Specific Gravity - Urine >= 1.030 (1.005-1.025); UMIC TRIGGER UA YES
[2024-10-05 08:28] LABS: Anion Gap 11 (12-20); Blood Urea Nitrogen 20 mg/dL (9-16); Calcium 8.9 mg/dL (8.4-10.2); Carbon Dioxide 25 mmol/L (22-29); Chloride 109 mmol/L (96-108); Estimated Glomerular Filt Rate 33; Iron 127 mcg/dL (45-160); Percent Iron Saturation 48 % (15-50); Potassium 4.4 mmol/L (3.3-5.1); Sodium 141 mmol/L (135-145); Total Iron Binding Capacity 264 mcg/dL (228-428); Unsaturated Iron Binding 137 ug/dL
[2024-10-05 08:32] LABS: Protein/Creatinine Ratio, Ur 0.04 (<0.2); Total Protein Urine Random 23 mg/dL (<12)
[2024-10-05 08:46] LABS: Ferritin 79 ng/mL (20-250)
== END 2024-10-05 07:09 | disposition home or self-care (01) ==
LOC: HO.LAB 07:08
PROVIDERS: PCP Internal Medicine Nephrology; Visit Provider Internal Medicine Nephrology
DX: N18.32 Chronic kidney disease, stage 3b (principal); E55.9 Vitamin D deficiency, unspecified; D50.9 Iron deficiency anemia, unspecified
CPT/HCPCS: 36415; 80051; 81001; 82306; 82310; 82565; 82570; 82728; 83540; 84156; 84520; 85025

== ENCOUNTER 2025-02-02 07:32 | Outpatient (REF) | payer MEDICARE, MEDICAID, SELFPAY ==
[2025-02-02 08:50] LABS: Anion Gap 10 (12-20); Blood Urea Nitrogen 19 mg/dL (9-16); Calcium 9.6 mg/dL (8.4-10.2); Carbon Dioxide 25 mmol/L (22-29); Chloride 109 mmol/L (96-108); Cholesterol 246 mg/dL (<200); Estimated Glomerular Filt Rate 38; HDL Cholesterol 48 mg/dL (>40); Potassium 4.3 mmol/L (3.3-5.1); Sodium 140 mmol/L (135-145); Triglycerides 106 mg/dL (<150)
== END 2025-02-02 07:33 | disposition home or self-care (01) ==
LOC: HO.LAB 07:32
PROVIDERS: PCP Internal Medicine; Visit Provider Internal Medicine
DX: I10 Essential (primary) hypertension (principal); E78.5 Hyperlipidemia, unspecified
CPT/HCPCS: 36415; 80048; 80061

== ENCOUNTER 2025-03-08 07:34 | Outpatient (REF) | payer MEDICARE, MEDICAID, SELFPAY ==
--- OUTSIDE RECORDS SUMMARY | 2025-03-08 07:38 | XMS_ITS | Encounter Summary ---
Author Organization [facility] [place], Address [address] [place] [address] Phone Care Team Providers Care Game Advisor Name Role Phone Mary Isaacs MD Primary Care Provider + [phone] Encounter Details Date Type Department Care Team (Late st Contact Info) Description 09/11/2023 Documentation Only [facility] [address] [place] [address] Tammie Magana [address] [place] [phone] Social History Tobacco Use Types Packs/Day Years Used Date Smoking Tobacco: Former Cigarettes 0.5 Q uit: 03/25/1998 Comments:Smoking History Inf o:Every [...] Care Team (Late st Contact Info) Description 04/15/2025 10:30 AM EST [facility] [address] [place] [address] Manan Carpenter MD [address] [facility] [place] [phone] documented as of this encounter Visit Diagnoses Not on filedocumented in this encounter Care Teams Game Advisor Relationship Specialty Start Date End Date Mary Isaacs MD 14 [facility] [address] [place] [address] PCP - General 01/20/19 documented as of this encounter
--- OUTSIDE RECORDS SUMMARY | 2025-03-08 07:38 | XMS_ITS | Encounter Summary ---
Author Organization [facility] [place], Address [address] [place] [address] Phone Care Team Providers Care Collet Maker Name Role Phone Mary Isaacs MD Primary Care Provider + [phone] Encounter Details Date Type Department Care Team ([facility] Contact Info) Description 07/15/2020 Orders Only [facility] [place] [facility] [address] [facility] [address] [place] [phone] Issa Meyers MD Chronic kidney disease, stage 3 (moderate) Social History Tobacco Use Types Packs/Day Years [...] Department Care Team (Late Contact Info) Description 04/15/2025 10:30 AM EST Office Visit [facility] - Patricia [address] [place] [phone] Manan Carpenter MD [address] [place] [phone] documented as of this encounter Visit Diagnoses Diagnosis Chronic kidney disease, stage 3 (moderate) documented in this encounter Care Teams Collet Maker Relationship Specialty Start Date End Date Mary Isaacs MD 14 [facility] [address] [place] [address] PCP - General 01/20/19 documented as of this encounter
--- OUTSIDE RECORDS SUMMARY | 2025-03-08 07:38 | XMS_ITS | Encounter Summary ---
Author Organization [facility] [place], Address [address] [place] [address] Phone Care Team Providers Care Manager Bridge Name Role Phone Mary Isaacs MD Primary Care Provider + [phone] Encounter Details Date Type Department Care Team (Late st Contact Info) Description 03/05/2023 Documentation Only [facility] [place] [address] [place] [address] Issa Meyers MD Social History Tobacco Use Types Packs/Day Years [...] Visit [facility] [address] [place] [address] Manan Carpenter MD [facility] [place] [address] documented as of this encounter Visit Diagnoses Not on filedocumented in this encounter Care Teams Manager Bridge Relationship Specialty Start Date End Date Mary Isaacs MD 14 [facility] [address] [place] [address] PCP - General 01/20/19 documented as of this encounter
--- OUTSIDE RECORDS SUMMARY | 2025-03-08 07:38 | XMS_ITS | Encounter Summary ---
Author Organization [facility] [place], Address [address] [place] [address] Phone Care Team Providers Care Director Of Sustainability Name Role Phone Mary Isaacs MD Primary Care Provider + [phone] Encounter Details Date Type Department Care Team (Late st Contact Info) Description 09/07/2022 Documentation Only [facility] [address] [place] [address] Issa Meyers MD Social History [...] Visit [facility] [address] [place] [address] Manan Carpenter MD [facility] [address] [place] [address] documented as of this encounter Visit Diagnoses Not on filedocumented in this encounter Care Teams Director Of Sustainability Relationship Specialty Start Date End Date Mary Isaacs MD 14 [facility] [address] [place] [address] PCP - General 01/20/19 documented as of this encounter
--- OUTSIDE RECORDS SUMMARY | 2025-03-08 07:38 | XMS_ITS | Encounter Summary ---
Author Organization [facility] [place], Address [address] [place] [address] Phone Care Team Providers Care Steel Crane Operator Name Role Phone Mary Isaacs MD Primary Care Provider + [phone] Encounter Details Date Type Department Care Team (Late st Contact Info) Description 09/06/2023 Documentation Only [facility] [address] [place] [address] Tammie Magana [address] [place] [phone] Social History Tobacco Use Types Packs/Day [...] Visit [facility] [address] [place] [address] Manan Carpenter MD [address] [facility] [place] [phone] documented as of this encounter Visit Diagnoses Not on filedocumented in this encounter Care Teams Steel Crane Operator Relationship Specialty Start Date End Date Mary Isaacs MD 14 [facility] [address] [place] [address] PCP - General 01/20/19 documented as of this encounter
--- OUTSIDE RECORDS SUMMARY | 2025-03-08 07:38 | XMS_ITS | Encounter Summary ---
Author Organization [facility], Address [address] [place] [address] Phone Care Team Providers Care Head Of Cytogenetics Name Role Phone Mary Isaacs MD Primary Care Provider + [phone] Encounter Details Date Type Department Care Team (Late st Contact Info) Description 09/07/2022 Documentation Only [facility] [place] [address] [place] [address] Issa Meyers MD Social History [...] Visit [facility] [place] [address] [place] [address] Manan Carpenter MD [facility] [address] [place] [address] documented as of this encounter Visit Diagnoses Not on filedocumented in this encounter Care Teams Head Of Cytogenetics Relationship Specialty Start Date End Date Mary Isaacs MD 14 [facility] [address] [place] [address] PCP - General 01/20/19 documented as of this encounter
--- OUTSIDE RECORDS SUMMARY | 2025-03-08 07:38 | XMS_ITS | Encounter Summary ---
Author Organization [facility] [place], Address [address] [place] [address] Phone Care Team Providers Care Complaint Evaluation Officer Name Role Phone Mary Isaacs MD Primary Care Provider + [phone] Encounter Details Date Type Department Care Team (Late st Contact Info) Description 09/10/2024 Documentation Only [facility] [address] [place] [address] Manan Carpenter MD [address] [place] [address] [place] [address] Social History Tobacco Use Types [...] Visit [facility] [address] [place] [phone] Manan Carpenter MD [address] [place] [address] [place] [address] documented as of this encounter Visit Diagnoses Not on filedocumented in this encounter Care Teams Complaint Evaluation Officer Relationship Specialty Start Date End Date Mary Isaacs MD 14 [facility] [address] [place] [address] PCP - General 01/20/19 documented as of this encounter
--- OUTSIDE RECORDS SUMMARY | 2025-03-08 07:38 | XMS_ITS | Encounter Summary ---
Author Organization [facility] [place], Address [address] [place] [address] Phone Care Team Providers Care Livestock Feeder Name Role Phone Mary Isaacs MD Primary Care Provider + [phone] Encounter Details Date Type Department Care Team (Late st Contact Info) Description 10/06/2024 Documentation Only [facility] [address] [place] [address] Tammie Magana [address] [place] [phone] Social History Tobacco Use Types Packs/Day [...] Visit [facility] [address] Belinda [address] [place] [phone] Manan Carpenter MD [address] [place] [address] [place] [address] documented as of this encounter Visit Diagnoses Not on filedocumented in this encounter Care Teams Livestock Feeder Relationship Specialty Start Date End Date Mary Isaacs MD 14 [facility] [address] [place] [address] PCP - General 01/20/19 documented as of this encounter
--- OUTSIDE RECORDS SUMMARY | 2025-03-08 07:38 | XMS_ITS | Encounter Summary ---
Author Organization [facility] Address [address] [place] [address] Phone Care Team Providers Care Health Information Assistant Name Role Phone Mary Isaacs MD Primary Care Provider + [phone] Mary Isaacs MD Unavailable [phone] Mary Isaacs MD Primary Care Provider [phone] Mary Isaacs MD Unavailable [phone] Jeimy White [facility] Unavailable Encounter Details Date Type Department Care Team (Late st Contact Info) Description 05/20/2019 Procedure Pass [address] [place] [address] Social History Tobacco Use Types Packs/Day Years [...] high school, GED, job training, learning the Tu[place] language, technical skills, or developing parenting skills)? [...] Care Team (Late st Contact Info) Description 08/04/2025 10:40 AM EDT Office Visit [facility] 14 [facility] [address] [place] [address] Mary Isaacs MD 14 [facility] [address] [place] [address] documented as of this encounter Visit Diagnoses Not on filedocumented in this encounter Care Teams Health Information Assistant Relationship Specialty Start Date End Date Mary Isaacs MD 14 [facility] [address] [place] [address] [email or web address] PCP - General 03/21/17 10/11/21 Mary Isaacs MD 14 [facility] [address] [place] [address] [email or web address] PCP - General Internal Medicine 10/12/21 Mary Isaacs MD 14 [facility] [address] [place] [address] [email or web address] Insurance Assigned Provider 02/16/18 08/21/20 Mary Isaacs MD 14 [facility] [address] [place] [address] [email or web address] Insurance Assigned Provider 06/22/23 Jeimy White, [facility] [address] [place] [address] [email or web address] PHCM Special Procedures Nurse 08/07/23 08/14/23 documented as of this encounter Additional Source Comments The information contained in this document represents components of the legal health record. It is not the complete legal health record.[facility]
--- OUTSIDE RECORDS SUMMARY | 2025-03-08 07:38 | XMS_ITS | Encounter Summary ---
Author Organization [facility] [place], Address [address] [place] [address] Phone Care Team Providers Care Grounds Maintenance Worker Name Role Phone Mary Isaacs MD Primary Care Provider + [phone] Encounter Details Date Type Department Care Team (Late st Contact Info) Description 03/19/2024 Documentation Only [facility] [address] [place] [address] Tammie Magana [address] [place] [phone] Social History Tobacco Use Types Packs/Day [...] Visit [facility] [address] Belinda L[address]IN [address] [place] [phone] Manan Carpenter MD [address] [place] [address] [place] [address] documented as of this encounter Visit Diagnoses Not on filedocumented in this encounter Care Teams Grounds Maintenance Worker Relationship Specialty Start Date End Date Mary Isaacs MD 14 [facility] [address] [place] [address] PCP - General 01/20/19 documented as of this encounter
--- OUTSIDE RECORDS SUMMARY | 2025-03-08 07:38 | XMS_ITS | Encounter Summary ---
Author Organization [facility] [place], Address [address] [place] [address] Phone Care Team Providers Care Bakery Deliverer Name Role Phone Mary Isaacs MD Primary Care Provider + [phone] Encounter Details Date Type Department Care Team (Late st Contact Info) Description 09/10/2024 Documentation Only [facility] [address] [place] [address] Stephanie Edward [address] [place] [phone] Social History Tobacco Use Types Packs/Day [...] Visit [facility] [place] [address] Belinda [address] [place] [phone] Manan Carpenter MD [address] [place] [address] [place] [address] documented as of this encounter Visit Diagnoses Not on filedocumented in this encounter Care Teams Bakery Deliverer Relationship Specialty Start Date End Date Mary Isaacs MD 14 [facility] [address] [place] [address] PCP - General 01/20/19 documented as of this encounter
--- OUTSIDE RECORDS SUMMARY | 2025-03-08 07:38 | XMS_ITS | Clinical Summary ---
Author Organization [facility], Address [address] [place] [phone] Phone Care Team Providers Care Security Expert Name Role Phone Mary Isaacs MD Primary Care Provider + [phone] Allergies Active Allergy Reactions Criticality Noted Date Comments Bee Pollen Itching,Other (see comments) 021 Pollen Extract Itching,Other (see comments) Medications spironolactone (ALDACTONE) 25 MG tablet Take 25 mg by mouth 2 (two) times a day 02/03/2018 Active losartan (COZAAR) 50 MG tablet Take 50 mg by mouth 2 (two) times a day 01/06/2018 Active atorvastatin (LIPITOR) 40 MG tablet Take 40 mg by mouth every night 01/06/2018 Active NIFEdipine CC (ADALAT CC) 90 MG 24 hr tablet Take 90 mg by mouth in the morning and 90 mg in the evening. 09/15/2021 Active labetalol (NORMODYNE) 200 MG tablet Take 600 mg by mouth in the morning and 600 mg at noon and 600 mg in the evening. 09/15/2021 Active ergocalciferol 1.25 MG (76064 UT) capsule Take 1 capsule (50,000 Units total) by mouth 1 (one) time per week 12 capsule 3 07/08/2024 6 Active Active Problems Problem Noted Date Diagnosed Date Hyperlipidemia 09/25/2021 Stage 3b chronic kidney disease 08/03/2020 Hypokalemia 07/08/2019 Hypertensive renal disease 07/08/2019 Hyperaldosteronism 01/07/2018 Hypertension 01/07/2018 Encounters Date Type Department Care Team Description 01/22/2025 Documentation Only [facility] [address] [place] [address] Summer Schneider MA from Last 3 Months Immunizations Immunization Administration Dates Next Due Tdap 10/23/2001 Family History Medical History Relation Comments Lung cancer Father Relation Status Comments Father Mother Social History Tobacco Use Types Packs/Day Years [...] on file Sexual Orientation Not on file Last Filed Vital Signs Vital Sign Reading Time Taken Comments Blood Pressure 110/60 03/06/2023 10:49 AM EST Pulse 64 03/06/2023 10:49 AM EST Temperature 36.7 C (98 F) 01/28/2019 12:00 PM EST Respiratory Rate 14 03/06/2023 10:49 AM EST Oxygen Saturation - - Inhaled Oxygen Concentration - - Weight 85.3 kg (188 lb) 03/06/2023 10:49 AM EST Height 175.3 cm (5' 9 ) 03/06/2023 10:49 AM EST Body Mass Index 27.76 03/06/2023 10:49 AM EST Plan of Treatment Upcoming Encounters Date Type Department Care Team (Late st Contact Info) Description 04/15/2025 10:30 AM EST Office Visit [facility] [place], [address] [place] [phone] Manan Carpenter MD [address] [place] [address] [place] [address] Health Maintenance Due Date Last Done Comments Pneumococcal Vaccine: 50+ Ye ars (1 of 2 - PCV) 1980 Colorectal Cancer Screening: Annual FOBT 2010 Colorectal Cancer Screening: Colonoscopy 2010 Colorectal Cancer Screening: Sigmoidoscopy 2010 Influenza Vaccine (#1) 2024 Hepatitis B Vaccine Aged Out No longe r eligible based on patient's age to complete this topic Insurance Medicaid [place] Medicare Care Teams Security Expert Relationship Specialty Start Date End Date Mary Isaacs MD [address] [place] [address] [address] [place] [address] PCP - General 01/20/19
--- OUTSIDE RECORDS SUMMARY | 2025-03-08 07:38 | XMS_ITS | Encounter Summary ---
Author Organization [facility] [place], Address [address] [place] [address] Phone Care Team Providers Care Infertility Medical Assistant Name Role Phone Mary Isaacs MD Primary Care Provider + [phone] Encounter Details Date Type Department Care Team (Late st Contact Info) Description 09/10/2024 Documentation Only [facility] [address] [place] [address] Manan Carpenter MD [address] [place] [address] [place] [address] Social History Tobacco Use Types [...] [facility] [address] [place] [phone] Manan Carpenter MD [address] [place] [address] [place] [address] documented as of this encounter Visit Diagnoses Not on filedocumented in this encounter Care Teams Infertility Medical Assistant Relationship Specialty Start Date End Date Mary Isaacs MD 14 [facility] [address] [place] [address] PCP - General 01/20/19 documented as of this encounter
--- OUTSIDE RECORDS SUMMARY | 2025-03-08 07:38 | XMS_ITS | Encounter Summary ---
Author Organization [facility] [place], Address [address] [place] [address] Phone Care Team Providers Care Assistant Director Of Public Works Name Role Phone Mary Isaacs MD Primary Care Provider + [phone] Encounter Details Date Type Department Care Team ([facility] Contact Info) Description 01/15/2020 Orders Only [facility] [place] [facility] [address] [facility] 3 [place] [phone] Issa Meyers MD Chronic kidney disease, stage [...] Visit [facility] - Patricia [address] [place] [phone] Manan Carpenter MD [address] [place] [phone] documented as of this encounter Visit Diagnoses Diagnosis Chronic kidney disease, stage 3 (moderate) documented in this encounter Care Teams Assistant Director Of Public Works Relationship Specialty Start Date End Date Mary Isaacs MD 14 [facility] [address] [place] [address] PCP - General 01/20/19 documented as of this encounter
--- OUTSIDE RECORDS SUMMARY | 2025-03-08 07:38 | XMS_ITS | Encounter Summary ---
Author Organization [facility] Address [address] [address] Phone Care Team Providers Care Catering Manager Name Role Phone Mary Isaacs MD Primary Care Provider [phone] Mary Isaacs MD Unavailable [phone] Reason for Visit * Reason Comments Medication Refill Encounter Details Date Type Department Care Team ([facility] st Contact Info) Description 03/06/2025 Refill [facility] 14 [facility] [address] [place] [address] Cande Malone, CRIME SCENE INVESTIGATOR [address] [place] [phone] [email or web address] Medication Refill Social History Tobacco Use Types Packs/Day Years Used Date Smoking Tobacco: Never Smokeless Tobacco: Never Child or Family Care Answer Date Record ed Do you have problems with on e of the following making it difficult for you to work, study, or receive health care? No 08/01/2020 Education Answer Date Recorded Are you interested in more education? Not on esha e 08/02/2022 Are you concerned about learning? Not on file 08/02/2022 No 08/02/2022 No 08/02/2022 Food Answer Date Recorded Within the past 6 months we worried whether our food would run out before we got money to buy more. Never True 08/01/2020 Within the past 6 months the food we bought just didn't last and we didn't have enough money to get more. Never True Paying for Meds Answer Date Recorded Do you have trouble paying for medicines? No 08/01/2020 Paying Utility Bills Answer Date Record ed Do you have trouble paying your heating or elect ricity bill? No 08/01/2020 Transportation Answer Date Recorded Has the lack of transportati on kept you from medical appointments or from getting medications? No 08/01/2020 Unemployment Answer Date Recorded Are you currently unemployed or working on a part-time or temporary basis, and looking for work? I choose not to answer 08/01/2020 Digital Access Answer Date Recorded No 08/11/2022 No 08/11/2022 Reliable internet access at home? Not on file 08/11/2022 Device with a working camera? Not on file Intimate Partner Violence Answer Date R ecorded Denied Basic Needs Not on file 02/04/2025 In the past 12 months have y ou been in a relationship with a person who hurts, threatens, or tries to control you? No 02/04/2025 Worried food would run out Not on file 02/04 In the past 12 months have y ou been in a relationship with a person who hurts, threatens, or tries to control you? No 02/04/2025 Sex and Gender Information Value Date Recorded Sex Assigned at Not on file Legal Sex Male 9:46 PM EDT Gender Identity Not on file Sexual Orientation Not on file documented as of this encounter Plan of Treatment Upcoming Encounters Date Type Department Care Team (Late st Contact Info) Description 08/04/2025 10:40 AM EDT Office Visit [facility] [address] [address] Mary Isaacs MD 14 [facility] [address] [place] [address] [email or web address] documented as of this encounter Visit Diagnoses Not on filedocumented in this encounter Additional Health Concerns Assessment Noted Time PHQ-9 Depression Total Score: 6 08/02/19 23 10:06 AM EDT PHQ-2 Depression Total Score: 0 02/05/20 25 3:38 PM EST documented as of this encounter Care Teams Catering Manager Relationship Specialty Start Date End Date Mary Isaacs MD 14 [facility] [address] [place] [address] [email or web address] PCP - General Internal Medicine 10/12/21 Mary Isaacs MD 14 [facility] [address] [place] [address] [email or web address] Insurance Assigned Provider 06/22/23 documented as of this encounter Additional Source Comments The information contained in this document represents components of the legal health record. It is not the complete legal health record.[facility]
--- OUTSIDE RECORDS SUMMARY | 2025-03-08 07:38 | XMS_ITS | Clinical Summary ---
Author Organization [facility] Address [address] [place] [phone] Phone Care Team Providers Care Choreography Director Name Role Phone Mary Isaacs MD Primary Care Provider Mary Isaacs MD Unavailable [phone] Allergies Active Allergy Reactions Criticality Noted Date Comments Bee Pollen Itching,Other (See Comments) 021 Pollen Extracts Itching,Sneezing 08/01/2020 Medications doxazosin (CARDURA) 4 MG tabletIndication s:HTN (hypertension) take 1 tablet by mouth at bedtime 30 tablet 3 03/13/2023 Active VITAMIN D2 1,250 mcg (50,000 unit) capsuleIndicatio ns:Stage 3 chronic kidney disease, unspecified whether stage 3a or 3b CKD take 1 capsule by mouth every week 4 capsule 3 12/17/2023 Active NIFEdipine (ADALAT CC) 60 MG 24 hr tablet TAKE 1 TABLET BY MOUTH two (2) times a day 60 tablet 3 11/06/2024 Active spironolactone (ALDACTONE) 25 MG tabletIndication s:HTN (hypertension) TAKE 2 TABLETS BY MOUTH two (2) times a day 360 tablet 02/03/2025 Active losartan (COZAAR) 50 MG tabletIndication s:HTN (hypertension) TAKE 1 TABLET BY MOUTH two (2) times a day 180 tablet 02/03/2025 Active labetaloL (TRANDATE) 200 MG tabletIndication s:HTN (hypertension) TAKE 3 TABLETS BY MOUTH 3 (THREE) TIMES A DAY 810 tablet 02/03/2025 Active atorvastatin (LIPITOR) 40 MG tabletIndication s:HTN (hypertension) TAKE 1 TABLET BY MOUTH AT BEDTIME 90 tablet 02/03/2025 05/04/19 26 Active Active Problems Problem Noted Date Diagnosed Date Adverse effect of carbonic-a nhydrase inhibitors, benzothiadiazides and other diuretics, initial encounter 01/07/2018 Stage 3 chronic kidney disease 01/07/2018 Diuretic-induced hypokalemia 01/07/2018 History of cerebral hemorrhage 01/07/2018 HTN (hypertension) 01/07/2018 Hyperaldosteronism 01/07/2018 Unsteady gait 01/07/2018 Cognitive impairment 01/07/2018 Delusional disorder currently in partial remissi on 01/07/2018 Encounters Date Type Department Care Team Description 03/06/2025 Refill [facility] Primary Care [facility] 14 [facility] [address] [place] [phone] Cande Malone CNP Medication Refill 02/04/2025 3:20 PM EST Office Visit [facility] Primary [facility] [address] [facility] [address] [place] [phone] Mary Isaacs MD Medicare annual wellness visit, subsequent (Primary Dx); Hypertension secondary to other renal disorders; Stage 3 chronic kidney disease, unspecified whether stage 3a or 3b CKD; History of cerebral hemorrhage; Unsteady gait; Hyperlipidemia, unspecified hyperlipidemia type; Cognitive impairment; Delusional disorder currently in partial remission 02/03/2025 Refill [facility] Primary [facility] [address] [facility] [address] [place] [phone] Darion Julio PA-C, ANGELA Medication Refill 02/03/2025 Refill [facility] [address] [facility] [address] [place] [phone] Mary Isaacs MD Medication Refill 02/02/2025 Telephone [facility] Primary [facility] [address] [place] [address] Ericka Underwood PA-C lab orders (After hours call) from Last 3 Months Immunizations Immunization Administration Dates Next Due Tdap 10/23/2001 Social History Tobacco Use Types Packs/Day Years Used Date Smoking Tobacco: Never Smokeless Tobacco: Never Tobacco Cessation:Counseling Given: Not Answered Child or Family Care Answer Date Record ed Do you have problems with on e of the following making it difficult for you to work, study, or receive health care? No 08/01/2020 Education Answer Date Recorded Are you interested in more education? Not on esah e 08/02/2022 Are you concerned about learning? [...] Sign Reading Time Taken Comments Blood Pressure 120/68 02/04/2025 3:24 PM EST Pulse 86 02/04/2025 3:24 PM EST Temperature 36.6 C (97.8 F) 02/04/2025 3:24 PM EST Respiratory Rate - - Oxygen Saturation 97% 02/04/2025 3:24 PM EST Inhaled Oxygen Concentration - - Weight 87 kg (191 lb 12.8 oz) 02/04/2025 3:24 PM EST Height 172.9 cm (5' 8.07 ) 02/04/2025 3:24 PM ES T Body Mass Index 29.1 02/04/2025 3:24 PM EST Plan of Treatment Upcoming Encounters Date Type Department Care Team (Late st Contact Info) Description 08/04/2025 10:40 AM EDT Office Visit [facility] 14 [facility] [address] [place] [address] Mary Isaacs MD 14 [facility] [address] [place] [address] [email or web address] Health Maintenance Due Date Last Done Comments HIV ONE-TIME SCREENING (18-65 YEARS) 07/08/1979 SCREENING FOR DIABETES 1996 COLOGUARD 2006 COLONOSCOPY 2006 COLORECTAL CANCER SCREENING 2006 FIT TEST 2006 FOBT 2006 SIGMOIDOSCOPY 2006 VIRTUAL COLONOSCOPY 2006 PNEUMOCOCCAL VACCINES (50+ years) (1 of 1 - PCV) 07/08/2011 ZOSTER VACCINES (1 of 2) 07/08/2011 Adult Td,Tdap Booster 10/24/2011 10/23/2001 POTASSIUM LEVEL 07/31/2024 08/01/2023 INFLUENZA VACCINE (#1) 2024 COVID-19 VACCINE ( - 2024- season) 2024 BLOOD PRESSURE 08/04/2025 02/04/2025 CREATININE LEVEL 09/07/2025 09/07/2024, , 08/01/2023, Additional history exists DEPRESSION SCREENING 02/04/2026 02/04/2025, 08/02/19 LIPID PANEL 07/31/2028 08/01/2023 RSV VACCINE (1 - 1-dose 75+ series) 2036 HEPATITIS C SCREENING Completed 07/30/2022 SMOKING STATUS SCREENING (Once After 26 Yrs) Completed 09/11/2024 HEPATITIS A VACCINES Aged Out No long er eligible based on patient's age to complete this topic HIB VACCINES Aged Out No longer eligi ble based on patient's age to complete this topic MENINGOCOCCAL VACCINES (ACWY) Aged Out No longer eligible based on patient's age to complete this topic MENINGOCOCCAL VACCINES (B) Aged Out N o longer eligible based on patient's age to complete this topic Medical Devices Not on file Procedures Procedure Name Priority Date/Time Associated Diagnosis Comments BASIC METABOLIC PANEL (BMP) Routine 08/01/2023 12:40 PM EDT HTN (hypertension) HEPATITIS C ANTIBODY, QUALITATIVE Routine 07/30/2022 12:37 PM EDT Need for hepatitis C screening test Screening for human immunodeficiency virus Laboratory examination ordered as part of a routine general medical examination Hyperaldosteronism HTN (hypertension) Cognitive impairment Stage 3 chronic kidney disease from Last 3 Months or Most Recently Relevant to Health Maintenance Results * Basic metabolic panel (08/01/2023 12:40 PM EDT) Blood Mary Isaacs MD LAB BLOOD BKR ORDERABLES Fin al Result Performing Organization Address [facility] Co de Phone Number [address] [phone] * Hepatitis C antibody, qualitative (07/30/2022 12:37 PM EDT) Blood Mary Isaacs MD LAB BLOOD BKR ORDERABLES Fin al Result Performing Organization Address City/[facility] Co de Phone Number EXTERNAL NON-INTERFACED REF LAB from Last 3 Months or Most Recently Relevant to Health Maintenance Insurance MEDICARE PART A & [place] MEDICARE PART A & [place] PART A & B [address] [place], [place] [address]HEALTH MEDICARE PART A & B [facility] & [place] A & B HEALTH MEDICARE PART A & B [address] [place] [address]HEALTH MEDICARE PART A & B [facility] Care Teams Choreography Director Relationship Specialty Start Date End Date Mary Isaacs MD [address] [place] [address] [address] [place] [address] PCP - General Internal Medicine 10/12/21 Mary Isaacs MD [address] [place] [address] [address] [place] [address] Insurance Assigned Provider 06/22/23 Additional Source Comments The information contained in this document represents components of the legal health record. It is not the complete legal health record.[facility]
[2025-03-08 09:13] LABS: Cholesterol 139 mg/dL (<200); HDL Cholesterol 44 mg/dL (>40); Triglycerides 67 mg/dL (<150)
== END 2025-03-08 07:35 | disposition home or self-care (01) ==
LOC: HO.LAB 07:34
PROVIDERS: PCP Internal Medicine; Visit Provider Internal Medicine
DX: E78.5 Hyperlipidemia, unspecified (principal)
CPT/HCPCS: 36415; 80061